=== PATIENT | male | born 1995 | race Caucasian/White ===

== ENCOUNTER 2018-01-13 09:14 | Outpatient (CLI) | payer BC ==
--- NOTE | 2018-01-13 10:01 | ULT ---
ULTRASOUND ABDOMEN: Date: 01/13/18 HISTORY: Abdominal pain. FINDINGS: The liver demonstrates increased echogenicity consistent with fatty infiltration. No focal mass or in trahepatic ductal dilatation is seen. No gallstones, gallbladder wall thickening, or pericholecystic fluid is identified. The common duct measures 2.0 mm in diameter. No hydronephrosis seen on either si de. The left kidney demonstrates a 2.1 cm cyst. The visualized portions of the pancreas, aorta, and I VC are unremarkable. The spleen measures 12.0 cm in length and is normal. No free fluid is seen. IMPRESSION: 1. Fatty liver. 2. No evidence of cholelithiasis. 3. Left renal cyst. POS: [facility]
== END 2018-01-13 09:15 | disposition home or self-care (01) ==
LOC: SCSULT 09:14
PROVIDERS: ATTEND Internal Medicine Gastroenterology
DX: R10.9 Unspecified abdominal pain (principal); K76.0 Fatty (change of) liver, not elsewhere classified; N28.1 Cyst of kidney, acquired
CPT/HCPCS: 76700